=== PATIENT | female | born 1980 | race Caucasian/White ===

== ENCOUNTER → 2016-09-06 | Outpatient (CLI) | payer OTHER ==
--- NOTE | 2016-09-06 17:25 | US ---
Dear Dr. Truong, Thank you for sending your patient, Rachel Simeon, to us for a follow-up US to assess interval fet al growth. As you know, the patient is a 36 y.o. G2, P1001 at 34 weeks and 5 days with an EDC of 10/13 based on LMP and 1st trimester US. Her is complicated by A2GDM, AMA, and history of bear or delivery at 35 weeks for which she is on weekly 17-OHP injections until 36 weeks. Rachel reports that her fasting blood sugars range from 70-90s and that her 1-hour postprandials ran ge from the 120-140s. She is now taking Glyburide 5 mg AM in 7.5 mg PM. Genetic Screening: NIPT reassuring The patient denies any uterine contractions, vaginal bleeding, or loss of fluid. She reports excellen t movement. Today, she is without complaints. US FINDINGS: Number of fetuses: 1 Placental location: Anterior, no previa presentation: Cephalic Cervix: Suboptimal MVP: 4.8 cm Measurements:34 Biparietal diameter: 84 mm, 34 weeks 1 days Head circumference: 307 mm, 34 weeks 2 days Abdominal circumference: 310 mm, 35 weeks 0 days Femur length: 67 mm, 34 weeks 3 days Humerus length: 60 mm, 35 weeks 0 days Transcerebellar diameter: 50 mm, 36 weeks 5 days Cerebral Lateral Ventricle: 3.3 mm Cisterna Magna: 1.2 mm Heart Rate: 126 bpm Average ultrasound age: 34 weeks 4 days Estimated weight: 2476 g weight percentile: 43 % Anatomy: anatomy was previously assessed. Today the following structures were visualized and appeared n ormal: lateral ventricles, posterior fossa, 4CH view and outflow tracts, stomach, kidneys, and bladde r. Today, the cisterna magna appeared mildly enlarged at 1.2 cm. However, the cerebellum continues to me asure appropriately for gestational age and there is no evidence of ventriculomegaly. This is likely a normal variant in late gestation. IMPRESSION: 1. Growth: The fetus measures appropriate for gestational age, measuring at a normal weight and perc entile. Visualization of the fetus continues to reveal no overt structural anomalies. There is eviden ce of normal amniotic fluid, and movement was seen during the examination. 2. A2GDM: The patient reports blood sugars that are largely at goal on Glyburide 5 mg/7.5 mg. - Continue twice weekly NSTs and weekly fluid checks - IOL at 38-39 weeks or sooner for a change in status or for poorly controlled blood sugars Thank you again for sending this patient to see us today. Approximately 15 minutes were spent with th is patient today with 12 minutes of this time spent in direct face to face counseling regarding today 's US findings and our recommendations. Please contact me with any questions at . Geri Solomon MD Maternal- Medicine
--- NOTE | 2016-09-07 08:35 | US ---
Obstetrical Sonogram Detail Clinical Indications: Advanced maternal age. Check growth and anatomy; comparison previous examinati on June 14, 2016. Technique: Longitudinal and transverse images are obtained. Dr. Solomon was present for the examinati on. Color Doppler evaluation is employed for assessment of vascularity. Findings: A single fetus is present in vertex presentation. Maternal cervical length is not visualized. The am ount of amniotic fluid is normal with an MVP of 4.8 cm. The placenta is located anterior with no pl acenta previa. motion is identified. A full anatomic scan has been performed previously. cardiac activit y is documented with a heart rate estimated at 126 beats per minute. A four-chamber heart view and ou tflow tracts were evaluated.. stomach, kidneys and bladder are normal. supratentorial bra in and posterior fossa are normal.. No abnormality is identified. biometry: Biparietal diameter = 85 mm = 34 weeks 1 day Head circumference = 307 mm = 34 weeks 2 days Abdominal circumference = 310 mm = 35 weeks 0 days Femur length = 67 mm = 34 weeks 3 days Estimated weight 2476 +/- 362 grams. This is at the 43rd percentile based on last menstrual per iod. The estimated delivery date by ultrasound is October 14, 2016. This compares to the clinical date of [facility] 2016. Impression: Single live intrauterine gestation with estimated age by ultrasound of 34 weeks 4 days with an estima ashley delivery date of 10/14/2016. There has been appropriate interval growth. No abnormality is identified. Please see Dr. Solomon's report for findings and recommendations.
== END ==
LOC: FIMAGING 12:41
PROVIDERS: ATTEND Obstetrics & Gynecology
DX: O24.414 Gestational diabetes mellitus in pregnancy, insulin controlled (principal); O09.523 Supervision of elderly multigravida, third trimester; Z3A.34 34 weeks gestation of pregnancy

== ENCOUNTER 2016-09-25 14:37 | Inpatient (IN) | payer OTHER ==
[2016-09-25] MEDS ORDERED: LR 1,000 ML IV PRN (14:46)
[2016-09-25] MEDS ORDERED: TERBUTALINE SULFATE 1 MG/ML VIAL IV PRN (14:46)
[2016-09-25] MEDS ORDERED: OXYTOCIN/RINGERS LACTATE 1,000 ML IV PRN (14:46)
[2016-09-25] MEDS ORDERED: AMPICILLIN SODIUM 2 GM in NS 100 ML IV ONE (14:46)
[2016-09-25] MEDS ORDERED: LIDOCAINE 1% 30 ML SDV ONE (14:58)
[2016-09-25] MEDS ORDERED: AMMONIA AROMATIC 1 EACH AMP IH ONE (14:59)
[2016-09-25] MEDS ORDERED: MISOPROSTOL 200 MCG TAB ONE (14:59)
[2016-09-25 15:00] LABS: % IMMATURE GRANULYOCYTES 0.6 % (0.0-1.1); ADD DIFF? NO; ADD MORPH? NO; ADD SCAN? NO; ATYPICAL LYMPHOCYTE FLAG 0 (0-99); FRAGMENT RBC FLAG 0 (0-99); HEMATOCRIT 44.4 % (38.0-47.0); LEFT SHIFT FLG 0 (0-99); LIPEMIA HEMOLYSIS FLAG 90 (0-99); MEAN CELL HEMOGLOBIN 31.1 pg (27.9-34.1); MEAN CELL HEMOGLOBIN CONCENTR. 33.8 g/dL (32.4-36.7); MEAN CELL VOLUME 92.1 fL (81.5-99.8); MEAN PLATELET VOLUME 10.3 fL (8.7-11.7); PLATELET CLUMPS FLAG 10 (0-99); PLATELET COUNT 259 10^3/uL (150-400); RED BLOOD CELL COUNT 4.82 10^6/uL (4.18-5.33); RED CELL DISTRIBUTION WIDTH 13.6 % (11.5-15.2)
[2016-09-25] MEDS ORDERED: fentaNYL 2MCG/ML/BUP 0.1% RTU 100 ML BAG EP ONE (15:09)
[2016-09-25] MEDS ORDERED: fentaNYL 100 MCG/2 ML INJ ONE (15:10)
[2016-09-25] MEDS ORDERED: PHENYLEPHRINE HCL 100 MCG/ML SYR ONE (15:10)
[2016-09-25] MEDS ORDERED: BUPIVACAINE 0.25% 30 ML SDV ONE (15:10)
[2016-09-25] MEDS ORDERED: ONDANSETRON 4 MG/2 ML VIAL IVP PRN (16:41)
[2016-09-25] MEDS ORDERED: PHENYLEPHRINE HCL 100 MCG/ML SYR IVP PRN (16:41)
--- NOTE | 2016-09-25 16:46 | PREANESOB ---
Obstetric Pre-Anesthesia Info - General Info Proposed Procedure: Labor and delivery : 2 Para: 1 WBD: 37 - Info Status: Full Term Monitors: External FHR Baseline (bpm): 130 FHR Pattern: Reassuring - Labor Status Cervical Dilation per last OB SVE: 6 PIH: No Magnesium Sulfate in Use: No Labor Epidural: Proposed Anesthesia ROS: Prior labor epidural. Gestational diabetes. Allergies/Adverse Reactions: Allergy/AdvReac Type Severity Reaction Status Date / Time ibuprofen Allergy Verified 01/19/12 05:28 Visit Medications: Generic Name Dose Route Start Last Admin Trade Name Freq PRN Reason Stop Dose Admin Ampicillin Sodium 1 gm/ Sodium 100 mls @ 200 mls/hr 09/25/16 18:47 Chloride IV 10/25/16 18:46 Q4H RUBY Protocol Lactated Ringer's 1,000 mls @ 0 mls/hr 09/25/16 14:46 Lr IV 03/24/17 14:45 PRN PRN SEE PROTOCOL CONDITIONS Protocol Per Protocol Oxytocin/Lactated Ringer's 1,000 mls @ 150 mls/hr 09/25/16 14:46 Pitocin 20 Units/Lr (Premix) IV PRN PRN Post- bleeding Terbutaline Sulfate 0.25 mg 09/25/16 14:46 Brethine IV 03/24/17 14:45 ONCE PRN Tachysystole Discontinued Medications Generic Name Dose Route Start Last Admin Trade Name Freq PRN Reason Stop Dose Admin Ammonia (Aromatic Spirit) Confirm 09/25/16 14:59 Ammonia Aromatic Administered 09/25/16 15:00 Dose 1 each IH .STK-MED ONE Bupivacaine HCl Confirm 09/25/16 15:10 Sensorcaine 0.25% Sdv Administered 09/25/16 15:11 Dose 30 ml .ROUTE .STK-MED ONE Fentanyl Confirm 09/25/16 15:10 Sublimaze Administered 09/25/16 15:11 Dose 100 mcg .ROUTE .STK-MED ONE Fentanyl/Bupivacaine HCl Confirm 09/25/16 15:09 Fentanyl/Bupivacaine/Ns 2 Mcg/Ml 0.1% (Premix Administered 09/25/16 15:10 Dose 100 ml EP .STK-MED ONE Ampicillin Sodium 2 gm/ Sodium 110 mls @ 220 mls/hr 09/25/16 14:46 09/25/16 14:45 Chloride IV 09/25/16 15:15 110 mls ONCE ONE Administration Protocol Lidocaine HCl Confirm 09/25/16 14:58 Lidocaine Hcl 1% Administered 09/25/16 14:59 Dose 30 ml .ROUTE .STK-MED ONE Misoprostol Confirm 09/25/16 14:59 Cytotec Administered 09/25/16 15:00 Dose 800 mcg .ROUTE .STK-MED ONE Phenylephrine HCl Confirm 09/25/16 15:10 Dale-Synephrine Administered 09/25/16 15:11 Dose 1,000 mcg .ROUTE .STK-MED ONE - Anesthesia History Response to Local Anesthetics: Normal Anesthesia & Operative History: No Prior Problems - Social History Substance Use/Abuse: Denies - Focused Exam Blood Pressure: 117/67 Heart Rate: 91 Height/Weight (Nursing): Height 165.1 cm Weight 89.811 kg Physical Exam: Within normal limits. ASA Status: II Labs: 09/25/16 14:50 Patient ABO/Rh O POSITIVE 09/25/16 14:50 - Plan Anesthetic Plan: CSE Consent Signed and on Chart: Yes Patient/Guardian Understands and Agrees to Plan: Yes General Comments: Consent signed after epidural due to patient discomfort.
[2016-09-25] MEDS ORDERED: LR 500 ML IV SCH (17:00)
[2016-09-25] MEDS ORDERED: fentaNYL 2MCG/ML/BUP 0.1% RTU 100 ML EP SCH (17:00)
--- NOTE | 2016-09-25 17:00 | POSTANESTH ---
Post Anesthetic Evaluation Cardiovascular Status: Normal, Stable, Similar to Pre-Op Cond Respiratory Status: Normal, Stable, Similar to Pre-op Cond. Level of Consciousness/Mental Status: Can Participate in Eval, Alert and Oriented Pain Control: Adequate, Prn Tx Ordered Nausea/Vomiting Control: Adequate, Prn Tx Ordered Complications Possibly Related to Anesthesia: None Noted (Tolerated CSE well, stable, comfortable.)
[2016-09-25] MEDS ORDERED: AMPICILLIN SODIUM 1 GM in NS 100 ML IV SCH (18:47)
[2016-09-25 19:21] LABS: PH VENOUS CORD BLOOD 7.35 (7.20-7.42)
[2016-09-25] MEDS ORDERED: HYDROCORTISONE 0.5% CREAM TP PRN (19:35)
[2016-09-25] MEDS ORDERED: HYDROCODONE/APAP 5/325 TAB PO PRN (19:35)
[2016-09-25] MEDS ORDERED: SIMETHICONE 80 MG TAB CHEW PO PRN (19:35)
--- NOTE | 2016-09-25 19:35 | OBPROC ---
- Labor and Delivery Onset of Contractions Date: 09/25/16 Onset of Contractions Time: 09:00 Onset of Contractions Type: Spontaneous Rupture of Membranes Date: 09/25/16 Rupture of Membranes Time: 18:54 Rupture of Membranes Type: Artificial Amniotic Fluid Color: Meconium Stained-Light Dilation Complete Time: 18:54 Delivery Type: Spontaneous Placenta Delivery Date: 09/25/16 Placenta Delivery Time: 19:12 Episiotomy/Laceration: 2nd Degree Repair: 3-0, Vicryl EBL: 400 ml Complications: Other (Specify) (partial placental abruption) Cord Gases: Cord Gases Cord Blood PCO2 TNP 09/25/16 19:06 Cord Base Excess TNP 09/25/16 19:06 Cord ABG pH TNP 09/25/16 19:06 Cord VBG pH 7.35 (7.20-7.42) 09/25/16 19:06 - Medications Labor Augmentation/Induction Meds Used: None Anesthesia: Epidural - [place] Info Infant A Delivery Date: 09/25/16 Delivery Time: 19:07 Sex of Infant: Female Score (1 Min): 7 Score (5 Min): 8
--- NOTE | 2016-09-25 19:53 | GHP ---
DATE OF ADMISSION: 09/25/2016 CHIEF COMPLAINT: Labor. HISTORY OF PRESENT ILLNESS: The patient is a 36-year-old, G2, P0, 1-0-1 female , who is at 37-2/7 weeks' gestation by LMP and 8-week ultrasound, who presents with complaints of painful contractions every 2 minutes. Upon admission, she was 6 cm dilated and ruel every 2 minutes. Her has been complicated by A2 gestational diabetes, depression, and advanced maternal age, and history of . She is currently on glyburide, Zoloft, and had been taking 17-hydroxyprogesterone through 36 weeks for prevention of . OB HISTORY: As noted, at 35 weeks. PSYCH COORDINATOR HISTORY: Negative. PAST MEDICAL HISTORY: Significant for seasonal allergies and depression. FAMILY HISTORY: Noncontributory. ALLERGIES: Ibuprofen. MEDICATIONS: Include vitamins, Colace, glyburide, and fluoxetine. REVIEW OF SYSTEMS: Positive for painful contractions. No vaginal bleeding or loss of fluid. PHYSICAL EXAMINATION: VITAL SIGNS: Stable. GENERAL: She is uncomfortable with contractions. ABDOMEN: heart rate 140s with moderate variability. PELVIC: Cervical exam was 6-7 cm dilated with bulging bag of water per RN. LABORATORY DATA: Significant for O positive, rubella immune, RPR nonreactive. Hepatitis B surface antigen negative. GBS positive. ASSESSMENT/PLAN: This is a 36-year-old, G2, P0, 1-0-1 female, who is at 37-2/7 weeks' gestation with active labor. well-being is reassuring. GBS positive. We will begin ampicillin per GBS protocol, prophylaxis protocol, A2 gestational diabetes. We will check blood sugars every hour, and depression; we will continue her fluoxetine post delivery. /[id number]/MODL MTDD
[2016-09-25] MEDS: ACETAMINOPHEN 325 MG TAB PO PRN (20:15)
[2016-09-26] MEDS: ACETAMINOPHEN 325 MG TAB PO PRN ×3 (03:42→19:59)
--- NOTE | 2016-09-26 08:45 | SOAPPROG ---
SOAP Progress Note Assessment/Plan: Assessment: PPD#1 s/p at 37 weeks Recovering well Depression: stable on zoloft s/p tdap and flu vaccine Plan: routine care continue zoloft 20 mg GTT at 6 weeks 09/26/16 08:41 Subjective: Slept well. Baby has latched. Minimal pain. Minimal bleeding. Has ambulated Objective: Vital Signs Temp Pulse Resp BP Pulse Ox 37.4 C 96 18 105/61 96 09/26/16 05:00 09/26/16 05:00 09/26/16 05:00 09/26/16 05:00 09/26/16 05:00 Laboratory Results 09/25/16 14:50 09/25/16 09/26/16 09/27/16 05:59 05:59 05:59 Output Total 400 Balance -400 Gen: NAD Breasts: soft Resp: unlabored CV: reg rate Abd: soft, nontender, uterus firm below U Ext: no edema ICD10 Worksheet Patient Problems: Problems Problem Status Onset Vaginal delivery Active
[2016-09-26] MEDS: DOCUSATE SODIUM 100 MG CAP PO PRN (11:23)
[2016-09-26] MEDS: FLUoxetine 20 MG CAP PO SCH (11:25)
[2016-09-26] MEDS ORDERED: EPSOM SALT 454 GM TP ONE (17:50)
[2016-09-26 20:26] VITALS: RESP 16
[2016-09-27] MEDS: ACETAMINOPHEN 325 MG TAB PO PRN ×2 (04:15→09:24)
--- NOTE | 2016-09-27 08:17 | SOAPPROG ---
SOAP Progress Note Assessment/Plan: Assessment: 36 yo s/p , ppd 2, doing well. Plan: 09/27/16 08:16 Rh +, rubella immune, home today. Check 2 hr gtt at 6 weeks for history of A2gdm. Continue prozac for depression, f/u in 2 weeks for mood check. Subjective: 36 yo s/p , ppd 2, doing well. Objective: Vital Signs Temp Pulse Resp BP Pulse Ox 36.9 C 91 16 122/70 H 93 09/26/16 20:25 09/26/16 20:25 09/26/16 20:25 09/26/16 20:25 09/26/16 20:25 Laboratory Results 09/25/16 14:50 09/26/16 09/27/16 09/28/16 05:59 05:59 05:59 Output Total 400 Balance -400 Physical Exam - Physical Exam General Appearance: no apparent distress Respiratory: lungs clear Cardiac/Chest: regular rate, rhythm Abdomen: non-tender Skin: warm/dry Extremities: non-tender Neuro/Psych: oriented x 3 ICD10 Worksheet Patient Problems: Problems Problem Status Onset Vaginal delivery Active
[2016-09-27] MEDS: DOCUSATE SODIUM 100 MG CAP PO PRN (09:24)
[2016-09-27 09:27] VITALS: BP 118/72; PULSE 86; TEMP 98.3; O2SAT 96
[2016-09-27] MEDS ORDERED: EPSOM SALT 454 GM TP ONE (10:52)
[2016-09-27] MEDS: FLUoxetine 20 MG CAP PO SCH (11:29)
== END 2016-09-27 12:00 | disposition home or self-care (01) | DRG 775 ==
LOC: FLD 14:37 → FOB 21:39
PROVIDERS: ADMIT Midwife; ATTEND Obstetrics & Gynecology
DX: O70.1 Second degree perineal laceration during delivery (principal); O99.820 Streptococcus B carrier state complicating pregnancy; O09.523 Supervision of elderly multigravida, third trimester; O24.429 Gestational diabetes mellitus in childbirth, unspecified control; O99.344 Other mental disorders complicating childbirth; Z3A.37 37 weeks gestation of pregnancy; F32.9 Major depressive disorder, single episode, unspecified; Z37.0 Single live birth
CPT/HCPCS: J0290; J2370; J2590; J3010